=== PATIENT | female | born 1975 | race Caucasian/White ===

== ENCOUNTER 2020-10-03 14:40 | Outpatient (CLI) | payer BC | END 2020-10-03 14:41 | disposition home or self-care (01) | LOC: CSHRAD 14:40 | PROVIDERS: ATTEND Internal Medicine Rheumatology | DX: M45.0 Ankylosing spondylitis of multiple sites in spine (principal) | CPT/HCPCS: 72202 ==

== ENCOUNTER 2021-10-09 13:06 | Outpatient (CLI) | payer BC | END 2021-10-09 13:07 | disposition home or self-care (01) | LOC: CSHMRI 13:06 | PROVIDERS: ATTEND Psychiatry & Neurology Neurology | DX: M35.2 Behcet's disease (principal) | CPT/HCPCS: 70544 ==

== ENCOUNTER 2025-01-16 14:46 | Outpatient (CLI) | payer BC, MEDICARE | END 2025-01-16 14:47 | disposition home or self-care (01) | LOC: CSHMAMMO 14:46 | PROVIDERS: ATTEND Internal Medicine Rheumatology | DX: M81.0 Age-related osteoporosis without current pathological fracture (principal); M85.89 Other specified disorders of bone density and structure, multiple sites | CPT/HCPCS: 77080 ==